=== PATIENT | female | born 1990 | race Caucasian/White ===

== ENCOUNTER 2017-01-13 20:28 | Emergency (ER) | payer BC, SELFPAY ==
[2017-01-13] MEDS ORDERED: Pantoprazole 40 MG VIAL ONE (20:47)
[2017-01-13] MEDS ORDERED: Ketorolac Tromethamine 30 MG/ML VIAL ONE (20:47)
[2017-01-13 20:56] LABS: #Basophils 0.1 thou/uL (0.0-0.2); #Eosinphils 0.2 thou/uL (0.0-0.7); #Monocytes 0.6 thou/uL (0.11-0.59); #Neutrophils 6.5 thou/uL (1.40-6.50); %Basophils 1.1 % (0.0-1.0); %Eosinophils 1.7 % (0.0-10.0); %Neutrophils 57.3 % (42.0-75.0); Hemoglobin 14.2 g/dL (12.0-16.0); Mean Corpuscular HGB CONC 34.8 g/dL (32.0-36.0); Mean Corpuscular Hemoglobin 29.3 pg (27.0-31.0); Mean Corpuscular Volume 84.1 fl (81.0-99.0); Mean Platelet Volume 8.4 fL (7.4-10.4); Platelet Count 259 thou/uL (130-400); RBC Distribution Width 12.2 % (11.5-14.5); Red Blood Cell (RBC) Count 4.85 mill/uL (4.20-5.40); White Blood Cell (WBC) Count 11.4 thou/uL (4.8-10.8)
[2017-01-13] MEDS ORDERED: ALPRAZolam 0.5 MG TAB ONE (21:14)
[2017-01-13 21:15] LABS: ALT (SGPT) 16 U/L (8-55); AST (SGOT) 14 U/L (5-34); Albumin 4.4 g/dL (3.5-5.0); Alkaline Phosphatase 79 U/L (40-150); Anion Gap 15 mmol/L (10-20); BUN (Urea Nitrogen) 14 mg/dL (7.0-18.7); Bilirubin, Total 0.5 mg/dL (0.2-1.2); CK (CPK) 70 U/L (29-168); Calc. Creatinine Clearance 0 mL/min (70-130); Calcium 9.8 mg/dL (7.8-10.44); Carbon Dioxide 23 mmol/L (22-29); Chloride 106 mmol/L (98-107); Estimated GFR-MDRD 70; Globulin 3.1 g/dL (2.4-3.5); Glucose 129 mg/dL (70-105); Potassium 3.4 mmol/L (3.5-5.1); Protein, Total 7.5 g/dL (6.0-8.3); Sodium 141 mmol/L (136-145)
[2017-01-13 21:16] LABS: CKMB 0.5 ng/mL (0-6.6); Troponin I 0.013 ng/mL (< 0.028)
[2017-01-13] MEDS ORDERED: HYDROcodone/Acetaminophen 5/325 mg Tablet ONE (21:36)
--- NOTE | 2017-01-13 22:29 | RAD ---
PORTABLE CHEST: 01/13/17 The heart is normal in size on this portable study done at 2032. There is no vascular congestion, ed adams, or pleural effusion. The lungs are clear. The left hilum is minimally prominent but this is pro bably due to her being rotated slightly. IMPRESSION: No acute thoracic findings. POS: HOME
== END 2017-01-13 22:17 | disposition home or self-care (01) ==
LOC: BURERS 20:28
DX: M94.0 Chondrocostal junction syndrome [Tietze] (principal); J45.909 Unspecified asthma, uncomplicated; F17.210 Nicotine dependence, cigarettes, uncomplicated; Z79.899 Other long term (current) drug therapy
CPT/HCPCS: 71010; 80053; 82550; 82553; 84484; 85025; 85379; 93005; 96374; 96375; C9113; J1885

== ENCOUNTER 2017-05-02 21:50 | Emergency (ER) | payer BC ==
[2017-05-02] MEDS ORDERED: Azithromycin 250 MG TAB ONE (22:10)
[2017-05-02] MEDS ORDERED: Benzonatate 100 MG CAP ONE (22:11)
[2017-05-02] MEDS ORDERED: Dexamethasone 4 mg/ml Vial ONE ×2 (22:13→22:14)
== END 2017-05-02 22:20 | disposition home or self-care (01) ==
LOC: BURERS 21:50
DX: J20.9 Acute bronchitis, unspecified (principal); J02.9 Acute pharyngitis, unspecified; F17.210 Nicotine dependence, cigarettes, uncomplicated
CPT/HCPCS: 99283; J1100

== ENCOUNTER 2017-10-27 22:11 | Emergency (ER) | payer BC ==
[2017-10-27] MEDS ORDERED: Ketorolac Tromethamine 30 MG/ML VIAL ONE (23:04)
[2017-10-27] MEDS ORDERED: diphenhydrAMINE 12.5 MG/5 ML UDCUP ONE (23:05)
[2017-10-27] MEDS ORDERED: diphenhydrAMINE 50 MG/ML VIAL ONE (23:06)
[2017-10-27] MEDS ORDERED: Metoclopramide HCl 10 MG/2 ML VIAL ONE (23:06)
== END 2017-10-27 23:40 | disposition home or self-care (01) ==
LOC: BURERS 22:11
DX: G43.909 Migraine, unspecified, not intractable, without status migrainosus (principal); J45.909 Unspecified asthma, uncomplicated; F17.210 Nicotine dependence, cigarettes, uncomplicated
CPT/HCPCS: 96374; 96375; J1200; J1885; J2765

== ENCOUNTER 2018-01-26 23:17 | Emergency (ER) | payer BC, SELFPAY ==
[2018-01-26] MEDS ORDERED: predniSONE 20 MG TAB ONE (23:58)
[2018-01-26] MEDS ORDERED: Sulfameth/Trimethoprim DS 800-160mg TAB ONE (23:58)
== END 2018-01-27 00:03 | disposition home or self-care (01) ==
LOC: BURERS 23:17
DX: R21 Rash and other nonspecific skin eruption (principal); F17.210 Nicotine dependence, cigarettes, uncomplicated; J45.909 Unspecified asthma, uncomplicated; Z79.899 Other long term (current) drug therapy
CPT/HCPCS: 99282; J7506

== ENCOUNTER 2018-04-25 19:56 | Emergency (ER) | payer SELFPAY ==
[2018-04-25 21:03] LABS: #Basophils 0.1 thou/uL (0.0-0.2); #Eosinphils 0.3 thou/uL (0.0-0.7); #Lymphocytes 0.9 thou/uL (1.20-3.40); #Monocytes 0.6 thou/uL (0.11-0.59); #Neutrophils 9.3 thou/uL (1.40-6.50); %Basophils 0.6 % (0.0-1.0); %Eosinophils 2.4 % (0.0-10.0); %Neutrophils 84.1 % (42.0-75.0); Hemoglobin 13.4 g/dL (12.0-16.0); Mean Corpuscular HGB CONC 33.7 g/dL (32.0-36.0); Mean Corpuscular Hemoglobin 26.9 pg (27.0-31.0); Mean Corpuscular Volume 79.6 fL (78.0-98.0); Mean Platelet Volume 9.4 fL (7.4-10.4); Platelet Count 186 thou/uL (130-400); Red Blood Cell (RBC) Count 4.99 mill/uL (4.20-5.40)
[2018-04-25] MEDS ORDERED: Ondansetron PF 4 MG/2 ML Vial ONE (21:03)
[2018-04-25] MEDS ORDERED: Famotidine In NaCl 20 mg/50 ml Premix Bag ONE (21:03)
[2018-04-25 21:09] LABS: Bilirubin Small (Negative); Blood, Urine Negative (Negative); Clarity Clear (Clear); Glucose, Urine (Dipstick) Negative (Negative); Leukocyte Negative (Negative); Nitrite Negative (Negative); Protein, Urine (Dipstick) 30 mg/dL (Neg-Trace); Urobilinogen 0.2 mg/dL (0.2-1.0); pH, Urine 6.5 (5.0-9.0)
[2018-04-25 21:10] LABS: Pregnancy Test - Urine (BHCG) Negative (Negative); Pregu Control Background? CLEAR/WHITE (CLR/WHITE); Pregu Control Bar Appear? YES (CONTROL BAR)
[2018-04-25 21:13] LABS: Bacteria/HPF 1+ HPF (None Seen); RBC/HPF 0-3 HPF (0-3); Squamous Epithelial 0-3 HPF (0-3); WBC/HPF 0-3 HPF (0-3)
[2018-04-25 21:15] LABS: ALT (SGPT) 20 U/L (8-55); AST (SGOT) 19 U/L (5-34); Albumin 4.2 g/dL (3.5-5.0); Alkaline Phosphatase 72 U/L (40-150); Anion Gap 13 mmol/L (10-20); BUN (Urea Nitrogen) 13 mg/dL (7.0-18.7); Bilirubin, Total 0.4 mg/dL (0.2-1.2); Calc. Creatinine Clearance 0 mL/min (70-130); Carbon Dioxide 26 mmol/L (22-29); Chloride 106 mmol/L (98-107); Estimated GFR-MDRD 89; Glucose 100 mg/dL (70-105); Lipase 24 U/L (8-78); Potassium 3.7 mmol/L (3.5-5.1); Protein, Total 7.2 g/dL (6.0-8.3); Sodium 141 mmol/L (136-145)
[2018-04-25] MEDS ORDERED: Ketorolac Tromethamine 30 MG/ML VIAL ONE (21:36)
== END 2018-04-25 22:18 | disposition home or self-care (01) ==
LOC: BURERS 19:56
DX: E86.0 Dehydration (principal); R11.2 Nausea with vomiting, unspecified; R19.7 Diarrhea, unspecified; J45.909 Unspecified asthma, uncomplicated; F17.210 Nicotine dependence, cigarettes, uncomplicated; Z79.899 Other long term (current) drug therapy
CPT/HCPCS: 80053; 81003; 81015; 81025; 83690; 85025; 96365; 96375; J1885; J2405

== ENCOUNTER 2018-05-01 16:37 | Emergency (ER) | payer SELFPAY ==
[2018-05-01] MEDS ORDERED: HYDROcodone/Acetaminophen 10/325 mg Tablet ONE (17:15)
--- NOTE | 2018-05-01 18:16 | RAD ---
LEFT ANKLE THREE VIEWS: 05/01/2018 FINDINGS: No acute fracture is seen. The ankle joint appears normal. IMPRESSION: No acute bony finding. POS: HOME
--- NOTE | 2018-05-01 18:20 | RAD ---
LEFT FOOT THREE VIEWS: 05/01/2018 FINDINGS: No fracture or periosteal reaction is seen. All bones appear intact. IMPRESSION: No acute findings. POS: HOME
== END 2018-05-01 17:33 | disposition home or self-care (01) ==
LOC: BURERS 16:37
DX: S93.402A Sprain of unspecified ligament of left ankle, initial encounter (principal); J45.909 Unspecified asthma, uncomplicated; F17.210 Nicotine dependence, cigarettes, uncomplicated; Z79.899 Other long term (current) drug therapy; W01.0XXA Fall on same level from slipping, tripping and stumbling without subsequent striking against object, initial encounter

== ENCOUNTER 2018-06-01 02:23 | Emergency (ER) | payer SELFPAY ==
[2018-06-01 02:49] LABS: Clarity Cloudy (Clear); Glucose, Urine (Dipstick) Negative (Negative); Leukocyte Small (Negative); Nitrite Negative (Negative); Protein, Urine (Dipstick) > or equal to 300 mg/dL (Neg-Trace); Specific Gravity, Urine 1.028 (1.002-1.036)
[2018-06-01 02:50] LABS: Bilirubin Small (Negative); Blood, Urine Large (Negative)
[2018-06-01 02:55] LABS: Pregnancy Test - Urine (BHCG) Negative (Negative)
[2018-06-01 02:56] LABS: Pregu Control Background? CLEAR/WHITE (CLR/WHITE); Pregu Control Bar Appear? YES (CONTROL BAR); Specific Gravity 1.028 (1.002-1.036)
[2018-06-01 03:00] LABS: Bacteria/HPF 1+ HPF (None Seen); RBC/HPF 21-50 HPF (0-3); Squamous Epithelial 0-3 HPF (0-3); WBC/HPF 0-3 HPF (0-3)
[2018-06-01] MEDS ORDERED: Nitrofurantoin Monohyd/M-Cryst 100 MG CAP ONE (03:04)
[2018-06-01] MEDS ORDERED: Phenazopyridine HCl 97.5 MG TABLET PO SCH (03:15)
== END 2018-06-01 03:14 | disposition home or self-care (01) ==
LOC: BURERS 02:23
DX: N39.0 Urinary tract infection, site not specified (principal); F17.210 Nicotine dependence, cigarettes, uncomplicated; J45.909 Unspecified asthma, uncomplicated; Z79.899 Other long term (current) drug therapy
CPT/HCPCS: 81003; 81015; 81025; 99283

== ENCOUNTER 2018-07-19 16:56 | Emergency (ER) | payer SELFPAY | END 2018-07-19 18:00 | disposition home or self-care (01) | LOC: BURERS 16:56 | DX: J11.1 Influenza due to unidentified influenza virus with other respiratory manifestations (principal); G43.909 Migraine, unspecified, not intractable, without status migrainosus; F41.9 Anxiety disorder, unspecified; F17.210 Nicotine dependence, cigarettes, uncomplicated; Z79.899 Other long term (current) drug therapy | CPT/HCPCS: 99282 ==

== ENCOUNTER 2018-09-29 08:28 | Emergency (ER) | payer SELFPAY | END 2018-09-29 08:48 | disposition home or self-care (01) | LOC: BURERS 08:28 | DX: J06.9 Acute upper respiratory infection, unspecified (principal); F41.9 Anxiety disorder, unspecified; F17.210 Nicotine dependence, cigarettes, uncomplicated | CPT/HCPCS: 99283 ==

== ENCOUNTER 2018-10-03 18:22 | Emergency (ER) | payer SELFPAY | END 2018-10-03 19:20 | disposition home or self-care (01) | LOC: BURERS 18:22 | DX: H60.91 Unspecified otitis externa, right ear (principal); J02.8 Acute pharyngitis due to other specified organisms; J04.0 Acute laryngitis; F41.9 Anxiety disorder, unspecified; F17.210 Nicotine dependence, cigarettes, uncomplicated | CPT/HCPCS: 99282 ==

== ENCOUNTER 2019-01-24 20:48 | Emergency (ER) | payer OTHER | END 2019-01-24 23:10 | disposition home or self-care (01) | LOC: BURERS 20:48 | DX: E86.0 Dehydration (principal); G43.909 Migraine, unspecified, not intractable, without status migrainosus; F41.9 Anxiety disorder, unspecified; F17.210 Nicotine dependence, cigarettes, uncomplicated | CPT/HCPCS: 96360 ==

== ENCOUNTER 2019-12-25 15:54 | Emergency (ER) | payer OTHER ==
[2019-12-25] MEDS ORDERED: Ibuprofen 200 MG TAB ONE (16:13)
--- NOTE | 2019-12-25 20:00 | RAD ---
RIGHT ANKLE THREE VIEWS: Date: 12-25-2019 FINDINGS: No fracture, dislocation, or joint space abnormality was seen. IMPRESSION: No acute findings. POS: HOME
== END 2019-12-25 17:00 | disposition home or self-care (01) ==
LOC: BURERS 15:54
DX: S90.01XA Contusion of right ankle, initial encounter (principal); F41.9 Anxiety disorder, unspecified; F17.210 Nicotine dependence, cigarettes, uncomplicated; W20.8XXA Other cause of strike by thrown, projected or falling object, initial encounter
CPT/HCPCS: 99406

== ENCOUNTER 2020-01-06 16:01 | Emergency (ER) | payer OTHER ==
[2020-01-06 16:35] LABS: #Eosinphils 0.1 thou/uL (0.0-0.7); #Lymphocytes 1.5 thou/uL (1.20-3.40); #Monocytes 0.2 thou/uL (0.11-0.59); #Neutrophils 13.9 thou/uL (1.40-6.50); %Basophils 0.3 % (0.0-1.0); %Eosinophils 0.5 % (0.0-10.0); %Lymphocytes 9.6 % (21.0-51.0); %Monocytes 1.5 % (0.0-10.0); %Neutrophils 88.1 % (42.0-75.0); Hemoglobin 11.8 g/dL (12.0-16.0); Mean Corpuscular HGB CONC 32.6 g/dL (32.0-36.0); Mean Corpuscular Volume 85.9 fL (78.0-98.0); Platelet Count 215 thou/uL (130-400); RBC Distribution Width 13.4 % (11.5-14.5); Red Blood Cell (RBC) Count 4.21 mill/uL (4.20-5.40); White Blood Cell (WBC) Count 15.7 thou/uL (4.8-10.8)
[2020-01-06 16:45] LABS: Anion Gap 14 mmol/L (10-20); BUN (Urea Nitrogen) 15 mg/dL (7.0-18.7); Calc. Creatinine Clearance 0 mL/min (70-130); Calcium 9.2 mg/dL (7.8-10.44); Carbon Dioxide 22 mmol/L (22-29); Chloride 108 mmol/L (98-107); Estimated GFR-MDRD 72; Glucose 130 mg/dL (70-105); Potassium 3.2 mmol/L (3.5-5.1); Sodium 141 mmol/L (136-145)
[2020-01-06 16:50] LABS: Bicarbonate (HCO3v) 23.2 mmol/L (22.0-28.0); CO2 Tension (PvCO2) 25.7 mmHg (40.0-50.0); Calcium, Ionized 1.16 mmol/L (See Comments:); Chloride 107 mmol/L (98-107); Hemoglobin - Calc 11.5 g/dL (12.0-16.0); Sodium 142 mmol/L (138-145); vO2 Saturation-calc 99.6 % (60.0-85.0)
== END 2020-01-06 17:05 | disposition home or self-care (01) ==
LOC: BURERS 16:01
DX: F45.8 Other somatoform disorders (principal); F17.210 Nicotine dependence, cigarettes, uncomplicated; G43.909 Migraine, unspecified, not intractable, without status migrainosus; G93.2 Benign intracranial hypertension
CPT/HCPCS: 36415; 80048; 82330; 82803; 83880; 85025; 99284

== ENCOUNTER 2020-09-07 21:31 | Emergency (ER) | payer OTHER ==
[2020-09-07] MEDS ORDERED: Dexamethasone 10 MG/ML VIAL ONE (22:07)
== END 2020-09-07 22:37 | disposition home or self-care (01) ==
LOC: BURERS 21:31
DX: O99.512 Diseases of the respiratory system complicating pregnancy, second trimester (principal); J02.9 Acute pharyngitis, unspecified; O99.332 Smoking (tobacco) complicating pregnancy, second trimester; F17.210 Nicotine dependence, cigarettes, uncomplicated; Z3A.17 17 weeks gestation of pregnancy
CPT/HCPCS: 87081; 87430; 99284; J1100

== ENCOUNTER 2020-10-19 12:02 | Emergency (ER) | payer OTHER ==
[2020-10-19] MEDS ORDERED: Lidocaine 2% 20 ml MDV ONE (12:23)
[2020-10-19] MEDS ORDERED: Ondansetron ODT 4 MG TAB ONE (12:23)
[2020-10-19] MEDS ORDERED: Boostrix 0.5 ML (Tdap) VIAL ONE (12:31)
== END 2020-10-19 12:46 | disposition home or self-care (01) ==
LOC: BURERS 12:02
DX: S61.012A Laceration without foreign body of left thumb without damage to nail, initial encounter (principal); W26.0XXA Contact with knife, initial encounter
CPT/HCPCS: 12001; 90471; 90715; Q0162

== ENCOUNTER 2021-08-20 21:44 | Emergency (ER) | payer OTHER ==
[2021-08-20] MEDS ORDERED: HYDROcodone/Acetaminophen 5/325 mg Tablet ONE (23:12)
== END 2021-08-20 23:20 | disposition home or self-care (01) ==
LOC: BURERS 21:44
DX: S90.31XA Contusion of right foot, initial encounter (principal); W20.8XXA Other cause of strike by thrown, projected or falling object, initial encounter

== ENCOUNTER 2023-07-06 20:26 | Emergency (ER) | payer OTHER ==
[2023-07-06 20:47] LABS: Bilirubin Negative (Negative); Blood, Urine Large (Negative); Clarity Cloudy (Clear); Glucose, Urine (Dipstick) Negative (Negative); Ketone, Urine Negative (Negative); Leukocyte Moderate (Negative); Nitrite Negative (Negative); Protein, Urine (Dipstick) 100 mg/dL (Neg-Trace); Specific Gravity, Urine 1.025 (1.005-1.030); pH, Urine 6.5 (5.0-9.0)
[2023-07-06 20:48] LABS: Pregnancy Test - Urine (BHCG) Negative (Negative); Pregu Control Background? CLEAR/WHITE (CLR/WHITE); Pregu Control Bar Appear? YES (CONTROL BAR); Specific Gravity 1.025 (1.002-1.036)
[2023-07-06 20:49] LABS: CAUTI Indications for Culture Dysuria,urgency,freq; RBC/HPF Greater than 50 HPF (0-3); Squamous Epithelial 0-3 HPF (0-3); WBC/HPF Greater Than 50 HPF (0-3)
[2023-07-06 20:50] LABS: Bacteria/HPF 2+ HPF (None Seen); Urine Culture Reflex Yes Yes
[2023-07-06] MEDS ORDERED: Sulfameth/Trimethoprim DS 800-160mg TAB ONE (21:12)
== END 2023-07-06 21:17 | disposition home or self-care (01) ==
LOC: BURERS 20:26
DX: N39.0 Urinary tract infection, site not specified (principal)
CPT/HCPCS: 81001; 81025; 87077; 87086; 87186; 99283

== ENCOUNTER 2023-10-06 19:37 | Emergency (ER) | payer OTHER ==
[2023-10-06 20:37] LABS: #Eosinphils 0.1 thou/uL (0.0-0.7); #Lymphocytes 2.3 thou/uL (1.20-3.40); #Monocytes 0.3 thou/uL (0.11-0.59); #Neutrophils 3.9 thou/uL (1.40-6.50); %Basophils 0.6 % (0.0-1.0); %Eosinophils 1.9 % (0.0-10.0); %Lymphocytes 34.5 % (21.0-51.0); Hematocrit 39.3 % (36.0-47.0); Hemoglobin 13.9 g/dL (12.0-16.0); Mean Corpuscular HGB CONC 35.2 g/dL (32.0-36.0); Mean Corpuscular Hemoglobin 28.9 pg (27.0-31.0); Mean Corpuscular Volume 82.1 fl (78.0-98.0); Platelet Count 197 10x3/uL (130-400); RBC Distribution Width 11.9 % (11.5-14.5); Red Blood Cell (RBC) Count 4.79 mill/uL (4.20-5.40); White Blood Cell (WBC) Count 6.7 10x3/uL (4.8-10.8)
[2023-10-06 20:47] LABS: BHCG - Serum Negative (NEGATIVE); Pregs Control Background? CLEAR/WHITE (CLR/WHITE); Pregs Control Bar Appear? YES (CONTROL BAR)
[2023-10-06 20:53] LABS: ALT (SGPT) 16 U/L (8-55); AST (SGOT) 14 U/L (5-34); Albumin 4.3 g/dL (3.5-5.0); Alkaline Phosphatase 71 U/L (40-110); Anion Gap 14 mmol/L (10-20); BUN (Urea Nitrogen) 11 mg/dL (7.0-18.7); Bilirubin, Total 0.4 mg/dL (0.2-1.2); Calc. Creatinine Clearance 0 mL/min (70-130); Calcium 9.3 mg/dL (7.8-10.44); Carbon Dioxide 26 mmol/L (22-29); Chloride 101 mmol/L (98-107); Estimated GFR 77; Globulin 2.8 g/dL (2.4-3.5); Glucose 109 mg/dL (70-105); Magnesium 2.1 mg/dL (1.6-2.6); Potassium 3.1 mmol/L (3.5-5.1); Protein, Total 7.1 g/dL (6.0-8.3); Sodium 138 mmol/L (136-145)
[2023-10-06 20:55] LABS: Troponin I Less than 0.010 ng/mL (< 0.028)
[2023-10-06] MEDS ORDERED: Potassium Chloride 20 MEQ TAB ONE (21:01)
== END 2023-10-06 21:28 | disposition home or self-care (01) ==
LOC: BURERS 19:37
DX: R00.2 Palpitations (principal)
CPT/HCPCS: 71045; 80053; 83735; 83880; 84443; 84484; 84703; 85025; 85379; 93005

== ENCOUNTER 2023-10-18 15:12 | Outpatient (CLI) | payer OTHER | END 2023-10-18 15:13 | disposition home or self-care (01) | LOC: BURRAD 15:12 | PROVIDERS: ATTEND Family Medicine | DX: J98.01 Acute bronchospasm (principal) | CPT/HCPCS: 71046 ==

== ENCOUNTER 2024-10-20 02:46 | Emergency (ER) | payer OTHER ==
[2024-10-20] MEDS ORDERED: Ipratropium/Albuterol 3 ML NEB ONE (03:17)
[2024-10-20] MEDS ORDERED: methylPREDNISolone Sod Succ/PF 125 MG/2 ML VIAL ONE (03:17)
== END 2024-10-20 03:53 | disposition home or self-care (01) ==
LOC: BURERS 02:46
DX: J45.901 Unspecified asthma with (acute) exacerbation (principal); F17.210 Nicotine dependence, cigarettes, uncomplicated; Z79.899 Other long term (current) drug therapy
CPT/HCPCS: 94760; 96372; J2919; J7620